=== PATIENT | female | born 1950 | race Caucasian/White ===

== ENCOUNTER 2017-05-27 15:21 | Emergency (ER) | payer MEDICARE ==
[2017-05-27] MEDS ORDERED: Meclizine HCl 25 MG TAB ONE (15:45)
[2017-05-27 16:04] LABS: #Basophils 0.1 thou/uL (0.0-0.2); #Eosinphils 0.1 thou/uL (0.0-0.7); #Lymphocytes 1.6 thou/uL (1.20-3.40); #Monocytes 0.4 thou/uL (0.11-0.59); #Neutrophils 5.9 thou/uL (1.40-6.50); %Basophils 0.9 % (0.0-1.0); %Eosinophils 1.3 % (0.0-10.0); %Lymphocytes 20.2 % (21.0-51.0); %Monocytes 4.4 % (0.0-10.0); %Neutrophils 73.3 % (42.0-75.0); Hemoglobin 13.6 g/dL (12.0-16.0); Mean Corpuscular HGB CONC 32.1 g/dL (32.0-36.0); Mean Corpuscular Hemoglobin 30.5 pg (27.0-31.0); Mean Corpuscular Volume 94.9 fl (81.0-99.0); Mean Platelet Volume 8.4 fL (7.4-10.4); Platelet Count 240 thou/uL (130-400); RBC Distribution Width 11.5 % (11.5-14.5); Red Blood Cell (RBC) Count 4.47 mill/uL (4.20-5.40)
--- NOTE | 2017-05-27 16:25 | RAD ---
CHEST ONE VIEW 05/27/17 HISTORY: Emergency exam. COMPARISON: None. FINDINGS: Lungs are clear. No pneumothorax or effusion. The cardiac silhouette and mediastinal contours are wit hin normal limits. No acute osseous abnormalities. Moderate degenerative changes are in the acromioclavicular joints. IMPRESSION: No acute intrathoracic abnormality. POS: [facility]
[2017-05-27 16:29] LABS: ALT (SGPT) 18 U/L (8-55); AST (SGOT) 18 U/L (5-34); Albumin 4.3 g/dL (3.4-4.8); Alkaline Phosphatase 112 U/L (40-150); Anion Gap 15 mmol/L (10-20); BUN (Urea Nitrogen) 17 mg/dL (9.8-20.1); Bilirubin, Total 0.3 mg/dL (0.2-1.2); CK (CPK) 105 U/L (29-168); Calc. Creatinine Clearance 0 mL/min (70-130); Calcium 10.3 mg/dL (7.8-10.44); Carbon Dioxide 21 mmol/L (23-31); Chloride 107 mmol/L (98-107); Estimated GFR-MDRD 68; Glucose 140 mg/dL (80-115); Potassium 3.5 mmol/L (3.5-5.1); Protein, Total 7.3 g/dL (6.0-8.3); Sodium 139 mmol/L (136-145)
[2017-05-27 16:32] LABS: CKMB 1.9 ng/mL (0-6.6); Troponin I Less than 0.010 ng/mL (< 0.028)
--- NOTE | 2017-05-27 18:02 | CT ---
CT BRAIN WITHOUT CONTRAST 05/27/17 HISTORY: Vertigo. COMPARISON: None. FINDINGS: No acute territorial infarct or hemorrhage. No midline shift or mass effect. Ventricular size and ext ra-axial CSF spaces are normal. The paranasal sinuses and mastoids are clear. IMPRESSION: No acute intracranial abnormality. POS: [facility]
--- NOTE | 2017-06-17 13:02 | EKG ---
Test Reason : DIZZINESS Blood Pressure : / mmHG Vent. Rate : 098 BPM Atrial Rate : 098 BPM P-R Int : 136 ms QRS Dur : 092 ms QT Int : 352 ms P-R-T Axes : 047 -01 072 degrees QTc Int : 449 ms Normal sinus rhythm Nonspecific ST and T wave abnormality Abnormal ECG Confirmed by AUGIE KNOX, JHONNY ([id number]), fashion editor NOBLE HINKLE ([id number]) on 06/17/2017 1:02:21 PM Referred By: Confirmed By:JHONNY GHOSH MD
== END 2017-05-27 19:47 | disposition home or self-care (01) ==
LOC: ERS 15:21
DX: R42 Dizziness and giddiness (principal); Z87.891 Personal history of nicotine dependence
CPT/HCPCS: 36415; 70450; 71045; 80053; 82553; 84484; 85025; 93005

== ENCOUNTER 2024-12-24 08:42 | Outpatient (CLI) | payer OTHER | END 2024-12-24 08:43 | disposition home or self-care (01) | LOC: BICMAMMO 08:42 | PROVIDERS: ATTEND Emergency Medicine | DX: Z91.89 Other specified personal risk factors, not elsewhere classified (principal); M81.0 Age-related osteoporosis without current pathological fracture | CPT/HCPCS: 77080 ==